=== PATIENT | female | born 1940 | race Caucasian/White ===

== ENCOUNTER → 2017-01-05 | Outpatient (CLI) | payer MEDICARE, MEDICAID ==
[~2017-01-05] MED LIST: APRESOLINE25 MG PO; BANOPHEN ANTI-I28 GM TOP; BYSTOLIC10 MG PO; CALCIUM 600 +1 EAC6 PO; CEFTIN500 MG PO; CELEBREX200 MG PO; CHERATUSSIN AC236 ML PO; COZAAR50 MG PO; DELTASONE20 MG PO; ENDOCET 5-3251 EACH PO; FLONASE 50 MCG/16 GM NOSE; IMITREX100 MG PO; LEVOTHROID (SY50 MCG PO; LEXAPRO20 MG PO; LIDOCAINE37.5 GM TOP; LIPITOR80 MG PO; LOPRESSOR100 MG PO; NEURONTIN300 MG PO; NORVASC5 MG PO; OMNICEF 300MG300 MG PO; PRILOSEC20 MG PO; PROVENTIL OR V6.7 GM INH; ROPINIROLE HCL2 MG PO; SINGULAIR10 MG PO; TAMIFLU75 MG PO; TYLENOL325 MG PO; ZANAFLEX4 MG PO; ZITHROMAX250 MG PO
== END | disposition disaster alternative care site (69) ==
LOC: LKCL 12:48
DX: R19.7 Diarrhea, unspecified (principal)

== ENCOUNTER 2017-01-23 21:33 | Emergency (ER) | payer MEDICARE, MEDICAID ==
--- NOTE | ~2017-01-23 | ER ---
PATIENT'S NAME: TAMMY OLVERA [facility] AGE: 76 Y [address] ROOM: [place] [address] LOCATION: [facility] ADMIT DATE: 01/23/2017 ER/Outpatient Report DISCHARGE DATE: 01/23/2017 FAMILY PHYSICIAN: Rosalee Doyle MD ATTENDING PHYSICIAN: Suha Ballesteros SEEN AT: 2145 hours. CHIEF COMPLAINT: Left thumb laceration. HISTORY OF PRESENT ILLNESS: The patient is a 76-year-old female, who states she was using a pill cutter when she accidentally cut the volar side of her distal left thumb. The patient states that she has been unable to control the bleeding with pressure. She did clean the wound with tap water. Immunization status unknown as far as her tetanus. ALLERGIES: NONE. HOME MEDICATIONS: See copied list. MEDICAL HISTORY: Includes degenerative arthritis and hypertension. SURGERIES: She has had appendectomy, tubal ligation, hysterectomy partial, T and A, cholecystectomy, appendectomy, hernia repair. SOCIAL HISTORY: Nonsmoker. Denies alcohol use. REVIEW OF SYSTEMS: All negative except for the thumb laceration. OBJECTIVE FINDINGS: VITAL SIGNS: Reviewed. EXTREMITIES: Exam of the left thumb on the volar distal end, there was a 1.5 cm laceration. There was some active bleeding. She had full flexion and extension of her thumb. ASSESSMENT: PATIENT'S NAME: TAMMY OLVERA [facility] AGE: 76 Y [address] ROOM: [place] [address] LOCATION: [facility] ADMIT DATE: 01/23/2017 ER/Outpatient Report DISCHARGE DATE: 01/23/2017 FAMILY PHYSICIAN: Rosalee Doyle MD ATTENDING PHYSICIAN: Suha Ballesteros A 1.5 cm laceration of volar side left distal thumb. PLAN: Treatment. The area was anesthetized with 1% Xylocaine. It was cleansed with normal saline. The wound was approximated and closed with 5-0 Ethilon interrupted sutures x3. Antibiotic and dressing applied. She was given a tetanus update and advised in wound care. Sutures to be removed in 1-week. NAINA DOVER FOR SUHA BALLESTEROS DO SWJ/modl /[id number] d: 01/24/17 0148 t: 01/31/17 1007, OUTPATIENT REPORT
== END 2017-01-23 22:03 | disposition disaster alternative care site (69) ==
LOC: GACC 21:33
PROC: 0HQGXZZ Repair Left Hand Skin, External Approach (ICD-10-PCS; principal; 2017-01-23)
DX: S61.012A Laceration without foreign body of left thumb without damage to nail, initial encounter (principal); I10 Essential (primary) hypertension; M19.90 Unspecified osteoarthritis, unspecified site; Z23 Encounter for immunization; Z98.51 Tubal ligation status; Z90.710 Acquired absence of both cervix and uterus; Z90.49 Acquired absence of other specified parts of digestive tract; W27.8XXA Contact with other nonpowered hand tool, initial encounter

== ENCOUNTER → 2017-03-16 | Emergency (ER) | payer OTHER, MEDICARE, MEDICAID | END | disposition disaster alternative care site (69) | LOC: GAMB 15:03 | DX: R53.1 Weakness (principal); E78.5 Hyperlipidemia, unspecified; E03.9 Hypothyroidism, unspecified; I10 Essential (primary) hypertension; F60.89 Other specific personality disorders; K21.9 Gastro-esophageal reflux disease without esophagitis; Z79.4 Long term (current) use of insulin; Z79.52 Long term (current) use of systemic steroids; Z79.1 Long term (current) use of non-steroidal anti-inflammatories (NSAID); Z79.899 Other long term (current) drug therapy ==

== ENCOUNTER → 2017-03-26 | Outpatient (CLI) | payer MEDICARE, MEDICAID | END | disposition disaster alternative care site (69) | LOC: GRAD 10:56 | DX: M17.11 Unilateral primary osteoarthritis, right knee (principal); M16.11 Unilateral primary osteoarthritis, right hip; M25.561 Pain in right knee; M25.551 Pain in right hip; M11.252 Other chondrocalcinosis, left hip; M11.261 Other chondrocalcinosis, right knee; M43.16 Spondylolisthesis, lumbar region ==